=== PATIENT | male | born 1955 | race Caucasian/White ===

== ENCOUNTER 2019-03-15 11:15 | Emergency (ER) | payer OTHER ==
[~2019-03-15] VITALS: Ht 165.1 cm; Wt 71.4 kg
[2019-03-15 11:18] VITALS: BP 175/83
[2019-03-15] MEDS ORDERED: ATOR40TA PO (11:57)
[2019-03-15] MEDS ORDERED: LISI2.5T PO (11:57)
[2019-03-15] MEDS ORDERED: LEVE500T8 PO (11:57)
[2019-03-15] MEDS ORDERED: DEXA4TAB66 PO (11:57)
[2019-03-15] MEDS ORDERED: FAMO-79 PO (11:57)
== END 2019-03-15 12:02 | disposition home or self-care (01) ==
LOC: ED 11:54
DX: E78.5 Hyperlipidemia, unspecified (principal); I10 Essential (primary) hypertension; J44.9 Chronic obstructive pulmonary disease, unspecified; K21.9 Gastro-esophageal reflux disease without esophagitis; R56.9 Unspecified convulsions; Z76.0 Encounter for issue of repeat prescription
CPT/HCPCS: 99283

== ENCOUNTER 2019-06-03 09:45 | Observation (INO) | payer MEDICARE, OTHER ==
[~2019-06-03] VITALS: Ht 165.1 cm; Wt 74.0 kg
[2019-06-03 13:45] VITALS: BP 148/82
== END 2019-06-03 17:04 | disposition home or self-care (01) ==
LOC: ED 10:14 → 3NW 12:33 → INTOOBSV 12:33
PROVIDERS: ADMIT Internal Medicine; ATTEND Internal Medicine
DX: C79.31 Secondary malignant neoplasm of brain (principal); C78.02 Secondary malignant neoplasm of left lung; C78.01 Secondary malignant neoplasm of right lung; C79.89 Secondary malignant neoplasm of other specified sites; Z85.820 Personal history of malignant melanoma of skin; F17.200 Nicotine dependence, unspecified, uncomplicated; I10 Essential (primary) hypertension; I25.2 Old myocardial infarction; J44.9 Chronic obstructive pulmonary disease, unspecified
CPT/HCPCS: 36415; 70450; 70491; 71045; 71275; 80053; 80185; 84484; 85025; 87040; 93005; 94640; 96374; 99284; G0378; J2930; Q9967